=== PATIENT | female | born 1980 | race American Indian/Alaskan Native ===

== ENCOUNTER 2016-12-30 23:47 | Inpatient (IN) | payer SELFPAY ==
[2016-12-31 01:11] LABS: Basophils % (Auto) 0.8 % (0.0-1.8); Eosinophils % (Auto) 0.5 % (0.0-4.3); Hematocrit 30.3 % (30.3-42.9); Hemoglobin 9.6 gm/dl (10.1-14.3); Mean Corpuscular HGB Conc 32 % (30-34); Mean Corpuscular Volume 79 fl (79-97); Platelet Count 353 K/mm3 (140-440); Red Blood Count 3.83 M/mm3 (3.65-5.03); Red Cell Distribution Width 18.3 % (13.2-15.2)
[2016-12-31 01:14] LABS: Mean Corpuscular Hemoglobin 25 pg (28-32)
[2016-12-31 01:22] LABS: Urine Drugs of Abuse Note Disclamer
[2016-12-31 01:38] LABS: Bacteria,Urine 1+ /HPF (Negative); Bilirubin,Urine SM (Negative); Blood,Urine LG (Negative); Ketones,Urine NEG (Negative); Leukocyte Esterase,Urine SM (Negative); Mucus,Urine 1+ /HPF; Nitrite,Urine NEG (Negative); RBC,Urine > 182.0 /HPF (0.0-6.0)
[2016-12-31 01:39] LABS: Potassium 3.2 mmol/L (3.6-5.0); Sodium 140 mmol/L (137-145)
[2016-12-31 01:40] LABS: Anion Gap 18 mmol/L; BUN/Creatinine Ratio 14; Blood Urea Nitrogen 10 mg/dL (7-17); Calcium 9.2 mg/dL (8.4-10.2); Carbon Dioxide 24 mmol/L (22-30); Chloride 101.4 mmol/L (98-107); Glucose 99 mg/dL (65-100)
[2016-12-31] MEDS ORDERED: K-DUR PO ONE (09:31)
--- NOTE | 2016-12-31 10:00 | Emergency Department Report ---
History of Present Illness - General Chief Complaint: Medical Clearance Stated Complaint: HEADACHE, RINGING IN EARS Time Seen by Provider: 12/31/16 09:30 Source: patient Mode of arrival: Ambulatory Limitations: No Limitations - History of Present Illness Initial Comments: 36-year-old female with no significant past medical history presents to the hospital initially for complaint of ringing in both ears and headache 3 weeks. Patient states she has been seen by physicians in the past 3 weeks for the same symptoms but has not received a CAT scan in the past year. Positive associated nausea without vomiting. Patient taken [id number] medicine with mild relief. She thinks the filling dizzy/room spinning sensation 8 times. She is currently homeless for the last 2 week stay she is not eating or sleeping well the last 3 weeks. She initially reported in triage that she was not homicidal or suicidal however, during my interview patient states she took 28 tablets of 500 mg acetaminophen last night. Patient does not know what time she took the medication. She then told the nurse that she took the medication since being in the ED and she has a bottle of Tylenol 100 mg 100 tablets with 17 left in the bottle. Patient history is inconsistent and she claims to not remember when she took the Tylenol (either before or after ED arrival). Patient also confides in the nurse that she is experiencing paranoia - Related Data Allergies Allergy/AdvReac Type Severity Reaction Status Date / Time No Known Allergies Allergy Verified 07/29/15 01:56 ED Review of Systems ROS: Stated complaint: HEADACHE, RINGING IN EARS Other details as noted in HPI Comment: All other systems reviewed and negative Other: Constitutional: No fevers chills Eyes: No eye pain visual changes ENT: As per HPI Neck: Denies pain Respiratory: Denies cough wheezing shortness of breath Cardiovascular: Denies chest pain, palpitations, syncope GI: Denies abdominal pain : Denies dysuria Musculoskeletal: Denies back pain, joint swelling Skin: Denies rash, lesions, erythema Neurologic: As per HPI Psychiatric: As per HPI ED Past Medical Hx - Past Medical History Previous Medical History?: No - Surgical History Past Surgical History?: No - Social History Smoking Status: Never Smoker Substance Use Type: None ED Physical Exam - General Limitations: No Limitations - Other Other exam information: General: No limitations, patient is alert in no acute distress Head exam: Atraumatic, normocephalic Eyes exam: Normal appearance, pupils equal reactive to light, extraocular movements intact ENT: Moist mucous membrane, left ear cerumen impaction, right TM appears to be scarred Neck exam: Normal inspection, full range of motion, no meningismus nontender Respiratory exam: Clear to auscultation bilateral, no wheezes, rales, crackles Cardiovascular: Normal rate and rhythm, normal heart sounds Abdomen: Soft, nondistended, and nontender, with normal bowel sounds, no rebound, or guarding Extremity: Full range of motion normal inspection no deformity Back: Normal Inspection, full range of motion, no tenderness Neurologic: Alert, oriented x3, cranial nerves intact, no motor or sensory deficit Psychiatric: Tearful, depressed Skin: Warm, dry, intact ED Course Vital Signs 12/31/16 12/31/16 12/31/16 00:39 05:46 11:00 Temperature 98.9 F 97.8 F Pulse Rate 84 92 H Respiratory 18 16 18 Rate Blood Pressure 124/75 130/78 O2 Sat by Pulse 100 100 Oximetry - Reevaluation(s) Reevaluation #1: 12/31/16 12:16 Patient received by mouth potassium and acetylcysteine initiated after reconsultation with poison control - Consultations Consultation #1: 12/31/16 09:56 case d/w Shay with poison control, rec asa, tylenol level prior to initiating treatment. 12/31/16 12:00 Poison control reconsultated recommends N-acetylcysteine They recommend repeat blood work 2 hours prior to completion of the 16 hour infusion to determine if repeat 16 hour infusion of N-acetylcysteine is necessary. Parameters to stop N-acetylcysteine infusion after 16 hours include Acetaminophen equals 0 LFTs less than 100 INR less than 1.5. If these are not met patient will require additional 16 hr N acetylcysteine infusuib. ED Medical Decision Making - Lab Data Result diagrams: 12/31/16 00:48 12/31/16 00:48 Lab Results 12/31/16 12/31/16 12/31/16 Range/Units 00:48 00:48 00:48 WBC (4.5-11.0) K/mm3 RBC (3.65-5.03) M/mm3 Hgb (10.1-14.3) gm/dl Hct (30.3-42.9) % MCV (79-97) fl MCH (28-32) pg MCHC (30-34) % RDW (13.2-15.2) % Plt Count (140-440) K/mm3 Lymph % (Auto) (13.4-35.0) % [place] % (Auto) (0.0-7.3) % Eos % (Auto) (0.0-4.3) % Baso % (Auto) (0.0-1.8) % Lymph # (1.2-5.4) K/mm3 [place] # (0.0-0.8) K/mm3 Eos # (0.0-0.4) K/mm3 Baso # (0.0-0.1) K/mm3 Seg Neutrophils % (40.0-70.0) % Seg Neutrophils # (1.8-7.7) K/mm3 Sodium 140 (137-145) mmol/L Potassium 3.2 L (3.6-5.0) mmol/L Chloride 101.4 (98-107) mmol/L Carbon Dioxide 24 (22-30) mmol/L Anion Gap 18 mmol/L BUN 10 (7-17) mg/dL Creatinine 0.7 (0.7-1.2) mg/dL Estimated GFR > 60 ml/min BUN/Creatinine Ratio 14 % Glucose 99 (65-100) mg/dL Calcium 9.2 (8.4-10.2) mg/dL Total Bilirubin (0.1-1.2) mg/dL Direct Bilirubin (0-0.2) mg/dL AST (5-40) units/L ALT (7-56) units/L Alkaline Phosphatase (35-129) units/L Total Creatine Kinase (30-135) units/L Total Protein (6.3-8.2) g/dL Albumin (3.9-5) g/dL Albumin/Globulin Ratio % HCG, Qual Negative (Negative) Urine Color (Yellow) Urine Turbidity (Clear) Urine pH (5.0-7.0) Ur Specific [place] (1.003-1.030) Urine Protein (Negative) mg/dL Urine Glucose (UA) (Negative) mg/dL Urine Ketones (Negative) mg/dL Urine Blood (Negative) Urine Nitrite (Negative) Urine Bilirubin (Negative) Urine Ictotest (Negative) Urine Urobilinogen (<2.0) mg/dL Ur Leukocyte Esterase (Negative) Urine WBC (Auto) (0.0-6.0) /HPF Urine RBC (Auto) (0.0-6.0) /HPF U Epithel Cells (Auto) (0-13.0) /HPF Urine Bacteria (Auto) (Negative) /HPF Urine Mucus /HPF Salicylates (2.8-20.0) mg/dL Urine Opiates Screen Urine Methadone Screen Acetaminophen (10.0-30.0) ug/mL Ur Barbiturates Screen Ur Phencyclidine Scrn Ur Amphetamines Screen U Benzodiazepines Scrn Urine Cocaine Screen U Marijuana (THC) Screen Drugs of Abuse Note Plasma/Serum Alcohol < 0.01 (0-0.07) gm% 12/31/16 12/31/16 12/31/16 Range/Units 00:48 00:48 00:48 WBC 8.0 (4.5-11.0) K/mm3 RBC 3.83 (3.65-5.03) M/mm3 Hgb 9.6 L (10.1-14.3) gm/dl Hct 30.3 (30.3-42.9) % MCV 79 (79-97) fl MCH 25 L (28-32) pg MCHC 32 (30-34) % RDW 18.3 H (13.2-15.2) % Plt Count 353 (140-440) K/mm3 Lymph % (Auto) 22.1 (13.4-35.0) % [place] % (Auto) 9.0 H (0.0-7.3) % Eos % (Auto) 0.5 (0.0-4.3) % Baso % (Auto) 0.8 (0.0-1.8) % Lymph # 1.8 (1.2-5.4) K/mm3 [place] # 0.7 (0.0-0.8) K/mm3 Eos # 0.0 (0.0-0.4) K/mm3 Baso # 0.1 (0.0-0.1) K/mm3 Seg Neutrophils % 67.6 (40.0-70.0) % Seg Neutrophils # 5.4 (1.8-7.7) K/mm3 Sodium (137-145) mmol/L Potassium (3.6-5.0) mmol/L Chloride (98-107) mmol/L Carbon Dioxide (22-30) mmol/L Anion Gap mmol/L BUN (7-17) mg/dL Creatinine (0.7-1.2) mg/dL Estimated GFR ml/min BUN/Creatinine Ratio % Glucose (65-100) mg/dL Calcium (8.4-10.2) mg/dL Total Bilirubin (0.1-1.2) mg/dL Direct Bilirubin (0-0.2) mg/dL AST (5-40) units/L ALT (7-56) units/L Alkaline Phosphatase (35-129) units/L Total Creatine Kinase 79 (30-135) units/L Total Protein (6.3-8.2) g/dL Albumin (3.9-5) g/dL Albumin/Globulin Ratio % HCG, Qual (Negative) Urine Color (Yellow) Urine Turbidity (Clear) Urine pH (5.0-7.0) Ur Specific [place] (1.003-1.030) Urine Protein (Negative) mg/dL Urine Glucose (UA) (Negative) mg/dL Urine Ketones (Negative) mg/dL Urine Blood (Negative) Urine Nitrite (Negative) Urine Bilirubin (Negative) Urine Ictotest (Negative) Urine Urobilinogen (<2.0) mg/dL Ur Leukocyte Esterase (Negative) Urine WBC (Auto) (0.0-6.0) /HPF Urine RBC (Auto) (0.0-6.0) /HPF U Epithel Cells (Auto) (0-13.0) /HPF Urine Bacteria (Auto) (Negative) /HPF Urine Mucus /HPF Salicylates < 0.3 L (2.8-20.0) mg/dL Urine Opiates Screen Urine Methadone Screen Acetaminophen (10.0-30.0) ug/mL Ur Barbiturates Screen Ur Phencyclidine Scrn Ur Amphetamines Screen U Benzodiazepines Scrn Urine Cocaine Screen U Marijuana (THC) Screen Drugs of Abuse Note Plasma/Serum Alcohol (0-0.07) gm% 12/31/16 12/31/16 12/31/16 Range/Units 00:48 01:01 01:01 WBC (4.5-11.0) K/mm3 RBC (3.65-5.03) M/mm3 Hgb (10.1-14.3) gm/dl Hct (30.3-42.9) % MCV (79-97) fl MCH (28-32) pg MCHC (30-34) % RDW (13.2-15.2) % Plt Count (140-440) K/mm3 Lymph % (Auto) (13.4-35.0) % [place] % (Auto) (0.0-7.3) % Eos % (Auto) (0.0-4.3) % Baso % (Auto) (0.0-1.8) % Lymph # (1.2-5.4) K/mm3 [place] # (0.0-0.8) K/mm3 Eos # (0.0-0.4) K/mm3 Baso # (0.0-0.1) K/mm3 Seg Neutrophils % (40.0-70.0) % Seg Neutrophils # (1.8-7.7) K/mm3 Sodium (137-145) mmol/L Potassium (3.6-5.0) mmol/L Chloride (98-107) mmol/L Carbon Dioxide (22-30) mmol/L Anion Gap mmol/L BUN (7-17) mg/dL Creatinine (0.7-1.2) mg/dL Estimated GFR ml/min BUN/Creatinine Ratio % Glucose (65-100) mg/dL Calcium (8.4-10.2) mg/dL Total Bilirubin (0.1-1.2) mg/dL Direct Bilirubin (0-0.2) mg/dL AST (5-40) units/L ALT (7-56) units/L Alkaline Phosphatase (35-129) units/L Total Creatine Kinase (30-135) units/L Total Protein (6.3-8.2) g/dL Albumin (3.9-5) g/dL Albumin/Globulin Ratio % HCG, Qual (Negative) Urine Color [place] (Yellow) Urine Turbidity Slightly-cloudy (Clear) Urine pH 5.0 (5.0-7.0) Ur Specific [place] 1.035 H (1.003-1.030) Urine Protein 100 mg/dl (Negative) mg/dL Urine Glucose (UA) Neg (Negative) mg/dL Urine Ketones Neg (Negative) mg/dL Urine Blood Lg (Negative) Urine Nitrite Neg (Negative) Urine Bilirubin Sm (Negative) Urine Ictotest Negative (Negative) Urine Urobilinogen 2.0 (<2.0) mg/dL Ur Leukocyte Esterase Sm (Negative) Urine WBC (Auto) 44.0 H (0.0-6.0) /HPF Urine RBC (Auto) > 182.0 (0.0-6.0) /HPF U Epithel Cells (Auto) 5.0 (0-13.0) /HPF Urine Bacteria (Auto) 1+ (Negative) /HPF Urine Mucus 1+ /HPF Salicylates (2.8-20.0) mg/dL Urine Opiates Screen Presumptive negative Urine Methadone Screen Presumptive negative Acetaminophen < 15.0 (10.0-30.0) ug/mL Ur Barbiturates Screen Presumptive negative Ur Phencyclidine Scrn Presumptive negative Ur Amphetamines Screen Presumptive positive U Benzodiazepines Scrn Presumptive negative Urine Cocaine Screen Presumptive negative U Marijuana (THC) Screen Presumptive negative Drugs of Abuse Note Disclamer Plasma/Serum Alcohol (0-0.07) gm% 12/31/16 12/31/16 12/31/16 Range/Units 10:06 11:04 11:04 WBC (4.5-11.0) K/mm3 RBC (3.65-5.03) M/mm3 Hgb (10.1-14.3) gm/dl Hct (30.3-42.9) % MCV (79-97) fl MCH (28-32) pg MCHC (30-34) % RDW (13.2-15.2) % Plt Count (140-440) K/mm3 Lymph % (Auto) (13.4-35.0) % [place] % (Auto) (0.0-7.3) % Eos % (Auto) (0.0-4.3) % Baso % (Auto) (0.0-1.8) % Lymph # (1.2-5.4) K/mm3 [place] # (0.0-0.8) K/mm3 Eos # (0.0-0.4) K/mm3 Baso # (0.0-0.1) K/mm3 Seg Neutrophils % (40.0-70.0) % Seg Neutrophils # (1.8-7.7) K/mm3 Sodium (137-145) mmol/L Potassium (3.6-5.0) mmol/L Chloride (98-107) mmol/L Carbon Dioxide (22-30) mmol/L Anion Gap mmol/L BUN (7-17) mg/dL Creatinine (0.7-1.2) mg/dL Estimated GFR ml/min BUN/Creatinine Ratio % Glucose (65-100) mg/dL Calcium (8.4-10.2) mg/dL Total Bilirubin 0.20 (0.1-1.2) mg/dL Direct Bilirubin < 0.2 (0-0.2) mg/dL AST 15 (5-40) units/L ALT 7 (7-56) units/L Alkaline Phosphatase 54 (35-129) units/L Total Creatine Kinase (30-135) units/L Total Protein 8.5 H (6.3-8.2) g/dL Albumin 4.6 (3.9-5) g/dL Albumin/Globulin Ratio 1.2 % HCG, Qual (Negative) Urine Color (Yellow) Urine Turbidity (Clear) Urine pH (5.0-7.0) Ur Specific [place] (1.003-1.030) Urine Protein (Negative) mg/dL Urine Glucose (UA) (Negative) mg/dL Urine Ketones (Negative) mg/dL Urine Blood (Negative) Urine Nitrite (Negative) Urine Bilirubin (Negative) Urine Ictotest (Negative) Urine Urobilinogen (<2.0) mg/dL Ur Leukocyte Esterase (Negative) Urine WBC (Auto) (0.0-6.0) /HPF Urine RBC (Auto) (0.0-6.0) /HPF U Epithel Cells (Auto) (0-13.0) /HPF Urine Bacteria (Auto) (Negative) /HPF Urine Mucus /HPF Salicylates < 0.3 L (2.8-20.0) mg/dL Urine Opiates Screen Urine Methadone Screen Acetaminophen 111.7 H (10.0-30.0) ug/mL Ur Barbiturates Screen Ur Phencyclidine Scrn Ur Amphetamines Screen U Benzodiazepines Scrn Urine Cocaine Screen U Marijuana (THC) Screen Drugs of Abuse Note Plasma/Serum Alcohol (0-0.07) gm% - Radiology Data Radiology results: report reviewed (CT head: No acute findings) - Medical Decision Making I was able to add acetaminophen and salicylate levels to the original blood draw at approximately midnight. This shows been negative acetaminophen level. Acetaminophen level drawn after I interviewed the patient shows an elevated level. Patient apparently took the Tylenol within "a couple hours" of my evaluation and exact time is unknown. After rediscussion with poison control we determined that N acetylcysteine treatment is required Patient's UA shows increased blood and white cells however, patient denies urinary symptoms and is currently on her menstrual cycle. CT head does not show any acute abnormality Coags pending for baseline level. LFTs are initially normal - Differential Diagnosis overdose, psychosis, depression, homelessness, ICH, Mnire, tumor Critical Care Time: No Critical care attestation.: If time is entered above; I have spent that time in minutes in the direct care of this critically ill patient, excluding procedure time. ED Disposition Clinical Impression: Acetaminophen overdose, Homeless, Paranoid delusion, Hypokalemia, Chronic head pain, Bilateral tinnitus Disposition: OP ADMIT IP TO THIS HOSP Is pt being admited?: Yes Condition: Stable Time of Disposition: 12:19 (Dr loyola/hosp)
--- NOTE | 2016-12-31 10:22 | Cat Scan Report ---
CT HEAD WITHOUT CONTRAST: HISTORY: Headache, tinnitus. Serial contiguous axial images were obtained through the cranium. Intravenous contrast material was not administered. The ventricles are normal in size and appearance. There is no mass effect or midline shift. No areas of abnormally increased or decreased attenuation are seen. No mass lesion is seen. The mastoid air cells and visualized portions of the sinuses are normal. IMPRESSION: Cranial CT scan within normal limits.
[2016-12-31 10:39] LABS: Alanine Aminotransferase 7 units/L (7-56); Albumin 4.6 g/dL (3.9-5); Albumin/Globulin Ratio 1.2 %; Alkaline Phosphatase 54 units/L (35-129); Total Protein 8.5 g/dL (6.3-8.2)
[2016-12-31 10:41] LABS: Bilirubin,Direct < 0.2 mg/dL (0-0.2)
[2016-12-31] MEDS ORDERED: ZOFRAN ODT ONE (10:59)
[2016-12-31] MEDS ORDERED: ZOFRAN ODT PO ONE (11:02)
[2016-12-31] MEDS ORDERED: ACETADOTE IV ONE ×6 (11:48→17:30)
[2016-12-31] MEDS ORDERED: D5W IV ONE ×5 (11:55→17:30)
[2016-12-31 14:49] LABS: INR 1.22 (0.87-1.13)
[2016-12-31 14:50] LABS: Partial Thromboplastin Time 33.5 Sec. (24.2-36.6)
[2016-12-31] MEDS ORDERED: MORPHINE IV PRN ×2 (14:54→16:30)
--- NOTE | 2016-12-31 14:54 | History and Physical Report ---
History of Present Illness Date of examination: 12/31/16 Date of admission: 12/31/16 12:23 Chief complaint: CC Tylenol Overdose History of present illness: History of Present Illness: [id number]/oAAFapparently tookabout 30 tylenol tablets while waiting in ER to be seen.She came to ER b/c of Dizziness.Says she took it accidentally for pain / symptom reief.Denies Suicidal or Homicidal thoughts.No sob.No Nausea/vomiting. Past Medical History Previous Medical History?: No Surgical History Past Surgical History?: No - Social History Smoking Status: Never Smoker Substance Use Type: None Fam his Non contributory Review of Systems Stated complaint: HEADACHE, RINGING IN EARS Other details as noted in HPI Comment: All other systems reviewed and negative Other: Constitutional: No fevers chills Eyes: No eye pain visual changes ENT: As per HPI Neck: Denies pain Respiratory: Denies cough wheezing shortness of breath Cardiovascular: Denies chest pain, palpitations, syncope GI: Denies abdominal pain : Denies dysuria Musculoskeletal: Denies back pain, joint swelling Skin: Denies rash, lesions, erythema Neurologic: As per HPI Psychiatric: As per HPI Medications and Allergies Allergies Allergy/AdvReac Type Severity Reaction Status Date / Time No Known Allergies Allergy Verified 07/29/15 01:56 Active Meds: Active Medications Acetylcysteine 6,670 mg/ (Dextrose) 1,033.35 mls @ 64.584 mls/hr IV ONCE.ED ONE Stop: 01/01/17 09:29 Acetylcysteine 3,335 mg/ (Dextrose) 516.675 mls @ 129.169 mls/hr IV ONCE.ED ONE Stop: 12/31/16 17:29 Exam - Constitutional Vitals: Temp Pulse Resp BP Pulse Ox 97.5 F L 73 18 124/74 100 12/31/16 12:19 12/31/16 14:22 12/31/16 14:22 12/31/16 14:00 12/31/16 14:22 General appearance: Present: no acute distress, well-nourished - EENT Eyes: Present: PERRL ENT: hearing intact, clear oral mucosa - Neck Neck: Present: supple, normal ROM - Respiratory Respiratory effort: normal Respiratory: bilateral: CTA - Cardiovascular Heart rate: 80 Rhythm: regular Heart Sounds: Present: S1 & S2. Absent: rub, click - Extremities Extremities: pulses symmetrical, No edema Peripheral Pulses: within normal limits - Abdominal General gastrointestinal: Present: soft, non-tender, non-distended, normal bowel sounds Female genitourinary: Present: normal - Rectal Rectal Exam: deferred - Integumentary Integumentary: Present: clear, warm, dry - Musculoskeletal Musculoskeletal: gait normal, strength equal bilaterally - Psychiatric Psychiatric: appropriate mood/affect, intact judgment & insight - Neurologic Neurologic: CNII-XII intact, moves all extremities - Allied Health Allied health notes reviewed: nursing, case management Results - Labs CBC & Chem 7: 12/31/16 00:48 12/31/16 00:48 Labs: Laboratory Last Values WBC 8.0 K/mm3 (4.5-11.0) 12/31/16 00:48 RBC 3.83 M/mm3 (3.65-5.03) 12/31/16 00:48 Hgb 9.6 gm/dl (10.1-14.3) L 12/31/16 00:48 Hct 30.3 % (30.3-42.9) 12/31/16 00:48 MCV 79 fl (79-97) 12/31/16 00:48 MCH 25 pg (28-32) L 12/31/16 00:48 MCHC 32 % (30-34) 12/31/16 00:48 RDW 18.3 % (13.2-15.2) H 12/31/16 00:48 Plt Count 353 K/mm3 (140-440) 12/31/16 00:48 Lymph % (Auto) 22.1 % (13.4-35.0) 12/31/16 00:48 [place] % (Auto) 9.0 % (0.0-7.3) H 12/31/16 00:48 Eos % (Auto) 0.5 % (0.0-4.3) 12/31/16 00:48 Baso % (Auto) 0.8 % (0.0-1.8) 12/31/16 00:48 Lymph # 1.8 K/mm3 (1.2-5.4) 12/31/16 00:48 [place] # 0.7 K/mm3 (0.0-0.8) 12/31/16 00:48 Eos # 0.0 K/mm3 (0.0-0.4) 12/31/16 00:48 Baso # 0.1 K/mm3 (0.0-0.1) 12/31/16 00:48 Seg Neutrophils % 67.6 % (40.0-70.0) 12/31/16 00:48 Seg Neutrophils # 5.4 K/mm3 (1.8-7.7) 12/31/16 00:48 PT 16.0 Sec. (12.2-14.9) H 12/31/16 Unknown INR 1.22 (0.87-1.13) H 12/31/16 Unknown APTT 33.5 Sec. (24.2-36.6) 12/31/16 Unknown Sodium 140 mmol/L (137-145) 12/31/16 00:48 Potassium 3.2 mmol/L (3.6-5.0) L 12/31/16 00:48 Chloride 101.4 mmol/L (98-107) 12/31/16 00:48 Carbon Dioxide 24 mmol/L (22-30) 12/31/16 00:48 Anion Gap 18 mmol/L 12/31/16 00:48 BUN 10 mg/dL (7-17) 12/31/16 00:48 Creatinine 0.7 mg/dL (0.7-1.2) 12/31/16 00:48 Estimated GFR > 60 ml/min 12/31/16 00:48 BUN/Creatinine Ratio 14 % 12/31/16 00:48 Glucose 99 mg/dL (65-100) 12/31/16 00:48 Calcium 9.2 mg/dL (8.4-10.2) 12/31/16 00:48 Total Bilirubin 0.20 mg/dL (0.1-1.2) 12/31/16 10:06 Direct Bilirubin < 0.2 mg/dL (0-0.2) 12/31/16 10:06 AST 15 units/L (5-40) 12/31/16 10:06 ALT 7 units/L (7-56) 12/31/16 10:06 Alkaline Phosphatase 54 units/L (35-129) 12/31/16 10:06 Total Creatine Kinase 79 units/L (30-135) 12/31/16 00:48 Total Protein 8.5 g/dL (6.3-8.2) H 12/31/16 10:06 Albumin 4.6 g/dL (3.9-5) 12/31/16 10:06 Albumin/Globulin Ratio 1.2 % 12/31/16 10:06 HCG, Qual Negative (Negative) 12/31/16 00:48 Urine Color [place] (Yellow) 12/31/16 01:01 Urine Turbidity Slightly-cloudy (Clear) 12/31/16 01:01 Urine pH 5.0 (5.0-7.0) 12/31/16 01:01 Ur Specific [place] 1.035 (1.003-1.030) H 12/31/16 01:01 Urine Protein 100 mg/dl mg/dL (Negative) 12/31/16 01:01 Urine Glucose (UA) Neg mg/dL (Negative) 12/31/16 01:01 Urine Ketones Neg mg/dL (Negative) 12/31/16 01:01 Urine Blood Lg (Negative) 12/31/16 01:01 Urine Nitrite Neg (Negative) 12/31/16 01:01 Urine Bilirubin Sm (Negative) 12/31/16 01:01 Urine Ictotest Negative (Negative) 12/31/16 01:01 Urine Urobilinogen 2.0 mg/dL (<2.0) 12/31/16 01:01 Ur Leukocyte Esterase Sm (Negative) 12/31/16 01:01 Urine WBC (Auto) 44.0 /HPF (0.0-6.0) H 12/31/16 01:01 Urine RBC (Auto) > 182.0 /HPF (0.0-6.0) 12/31/16 01:01 U Epithel Cells (Auto) 5.0 /HPF (0-13.0) 12/31/16 01:01 Urine Bacteria (Auto) 1+ /HPF (Negative) 12/31/16 01:01 Urine Mucus 1+ /HPF 12/31/16 01:01 Salicylates < 0.3 mg/dL (2.8-20.0) L 12/31/16 11:04 Urine Opiates Screen Presumptive negative 12/31/16 01:01 Urine Methadone Screen Presumptive negative 12/31/16 01:01 Acetaminophen 111.7 ug/mL (10.0-30.0) H 12/31/16 11:04 Ur Barbiturates Screen Presumptive negative 12/31/16 01:01 Ur Phencyclidine Scrn Presumptive negative 12/31/16 01:01 Ur Amphetamines Screen Presumptive positive 12/31/16 01:01 U Benzodiazepines Scrn Presumptive negative 12/31/16 01:01 Urine Cocaine Screen Presumptive negative 12/31/16 01:01 U Marijuana (THC) Screen Presumptive negative 12/31/16 01:01 Drugs of Abuse Note Disclamer 12/31/16 01:01 Plasma/Serum Alcohol < 0.01 gm% (0-0.07) 12/31/16 00:48 Cardiac Enzymes 12/31/16 Range/Units 00:48 Total Creatine Kinase 79 (30-135) units/L Liver Function 12/31/16 Range/Units 10:06 Total Bilirubin 0.20 (0.1-1.2) mg/dL Direct Bilirubin < 0.2 (0-0.2) mg/dL AST 15 (5-40) units/L ALT 7 (7-56) units/L Alkaline Phosphatase 54 (35-129) units/L Albumin 4.6 (3.9-5) g/dL - Imaging and Cardiology CT Scan - head: report reviewed (NAF) Assessment and Plan Advance Directives: Yes (Full code) VTE prophylaxis?: Chemical Plan of care discussed with patient/family: Yes - Patient Problems (1) Acetaminophen overdose Current Visit: Yes Status: Acute Qualifiers: Encounter type: initial encounter Injury intent: I Plan to address problem: IV Mucomist initiated per protocol .Also IV fluids for now.Tylenol level 111.High but not vary high MH consult. (2) Homeless Current Visit: Yes Status: Chronic Plan to address problem: Needs SW intervention (3) Hypokalemia Current Visit: Yes Status: Acute Plan to address problem: Supplemented (4) UTI (urinary tract infection) Current Visit: Yes Status: Acute Qualifiers: Urinary tract infection type: acute cystitis Hematuria presence: H Indwelling urinary catheter type: I Encounter type: E Plan to address problem: Ceftriaxone initiated (5) Drug allergy Current Visit: Yes Status: Acute Plan to address problem: patient says she had reaction to mucomist.Mucomist stopped and was given Solumedrol and Benadryl (6) Anemia Current Visit: Yes Status: Chronic Qualifiers: Anemia type: iron deficiency Iron deficiency anemia type: I Vitamin B12 deficiency anemia type: V Folate deficiency anemia type: F Bone marrow failure anemia type: B Hemolytic anemia type: H Other causes of anemia: O Chronic kidney disease stage: C Plan to address problem: CHeck Iron/B12/Folic acid levels (7) DVT prophylaxis Current Visit: Yes Status: Acute Plan to address problem: On Lovenox
[2016-12-31] MEDS ORDERED: MUCOMYST ORAL PO SCH ×2 (15:00→22:00)
[2016-12-31] MEDS ORDERED: D5NS 1,000 ML IV SCH (15:00)
[2016-12-31] MEDS ORDERED: TYLENOL PO PRN (15:30)
[2016-12-31] MEDS ORDERED: ZOFRAN IV PRN (15:30)
[2016-12-31] MEDS ORDERED: DULCOLAX PR PRN (16:00)
[2016-12-31] MEDS ORDERED: BENADRYL IV PRN (16:20)
[2016-12-31] MEDS: PEPCID IV SCH (22:00)
[2017-01-01] MEDS ORDERED: K-DUR PO ONE (08:00)
[2017-01-01] MEDS: PEPCID IV SCH (09:56)
[2017-01-01] MEDS ORDERED: ROCEPHIN/NS 1 GM/50 ML 1 GM/50 ML BAG IV SCH (10:00)
[2017-01-01] MEDS ORDERED: MOTRIN PO PRN (10:13)
--- NOTE | 2017-01-01 11:15 | Progress Note ---
Assessment and Plan Assessment and plan: Acetaminophen overdose. She apparently took Tylenol previous. She was admitted for Tylenol overdose. She was initially started on Mucomyst, had an allergic reaction, this was discontinued she is now started on solumedrol and Benadryl. Hypokalemia. SR 3.2 on admission. She was given replacement potassium. Repeat potassium ordered but patient has refused blood draw. Urinary tract infection. Start [employer] homeless. rn case manager to assist. Medical non-compliance. patient has been very noncompliant. She removed IV and refused IV medications. She has also refused blood draw. I discussed with her about importance of checking labs - Acetaminophen level, INR ,CMP but she still refused. DVT prophylaxis History Interval history: Patient admitted for acetaminophen overdose, Patient has been refusing some medications, labs, She took iv out Hospitalist Physical - Physical exam Narrative exam: Gen Appearance: Not in acute distress, HEENT: normocephalic, atraumatic Neck: supple, no JVD Lungs: Clear to auscultation, no rales, no wheezing, Heart: S1 and S2 regular, no murmurs,no rubs or gallop, Abdomen: Soft , non tender, non distended, normal bowel sounds Extremity: No edema, no clubbing or cyanosis, Neuro : Awake,alert, oriented x 3, normal speech, moves all extremities - Constitutional Vitals: Temp Pulse Resp BP Pulse Ox 97.9 F 67 18 105/63 99 01/01/17 07:44 01/01/17 07:44 01/01/17 07:44 01/01/17 07:44 01/01/17 04:00 General appearance: Present: no acute distress, well-nourished Results - Labs CBC & Chem 7: 12/31/16 00:48 12/31/16 00:48 Labs: Laboratory Last Values WBC 8.0 K/mm3 (4.5-11.0) 12/31/16 00:48 RBC 3.83 M/mm3 (3.65-5.03) 12/31/16 00:48 Hgb 9.6 gm/dl (10.1-14.3) L 12/31/16 00:48 Hct 30.3 % (30.3-42.9) 12/31/16 00:48 MCV 79 fl (79-97) 12/31/16 00:48 MCH 25 pg (28-32) L 12/31/16 00:48 MCHC 32 % (30-34) 12/31/16 00:48 RDW 18.3 % (13.2-15.2) H 12/31/16 00:48 Plt Count 353 K/mm3 (140-440) 12/31/16 00:48 Lymph % (Auto) 22.1 % (13.4-35.0) 12/31/16 00:48 [place] % (Auto) 9.0 % (0.0-7.3) H 12/31/16 00:48 Eos % (Auto) 0.5 % (0.0-4.3) 12/31/16 00:48 Baso % (Auto) 0.8 % (0.0-1.8) 12/31/16 00:48 Lymph # 1.8 K/mm3 (1.2-5.4) 12/31/16 00:48 [place] # 0.7 K/mm3 (0.0-0.8) 12/31/16 00:48 Eos # 0.0 K/mm3 (0.0-0.4) 12/31/16 00:48 Baso # 0.1 K/mm3 (0.0-0.1) 12/31/16 00:48 Seg Neutrophils % 67.6 % (40.0-70.0) 12/31/16 00:48 Seg Neutrophils # 5.4 K/mm3 (1.8-7.7) 12/31/16 00:48 PT 16.0 Sec. (12.2-14.9) H 12/31/16 Unknown INR 1.22 (0.87-1.13) H 12/31/16 Unknown APTT 33.5 Sec. (24.2-36.6) 12/31/16 Unknown Sodium 140 mmol/L (137-145) 12/31/16 00:48 Potassium 3.2 mmol/L (3.6-5.0) L 12/31/16 00:48 Chloride 101.4 mmol/L (98-107) 12/31/16 00:48 Carbon Dioxide 24 mmol/L (22-30) 12/31/16 00:48 Anion Gap 18 mmol/L 12/31/16 00:48 BUN 10 mg/dL (7-17) 12/31/16 00:48 Creatinine 0.7 mg/dL (0.7-1.2) 12/31/16 00:48 Estimated GFR > 60 ml/min 12/31/16 00:48 BUN/Creatinine Ratio 14 % 12/31/16 00:48 Glucose 99 mg/dL (65-100) 12/31/16 00:48 Calcium 9.2 mg/dL (8.4-10.2) 12/31/16 00:48 Total Bilirubin 0.20 mg/dL (0.1-1.2) 12/31/16 10:06 Direct Bilirubin < 0.2 mg/dL (0-0.2) 12/31/16 10:06 AST 15 units/L (5-40) 12/31/16 10:06 ALT 7 units/L (7-56) 12/31/16 10:06 Alkaline Phosphatase 54 units/L (35-129) 12/31/16 10:06 Total Creatine Kinase 79 units/L (30-135) 12/31/16 00:48 Total Protein 8.5 g/dL (6.3-8.2) H 12/31/16 10:06 Albumin 4.6 g/dL (3.9-5) 12/31/16 10:06 Albumin/Globulin Ratio 1.2 % 12/31/16 10:06 HCG, Qual Negative (Negative) 12/31/16 00:48 Urine Color Nimo (Yellow) 12/31/16 01:01 Urine Turbidity Slightly-cloudy (Clear) 12/31/16 01:01 Urine pH 5.0 (5.0-7.0) 12/31/16 01:01 Ur Specific [place] 1.035 (1.003-1.030) H 12/31/16 01:01 Urine Protein 100 mg/dl mg/dL (Negative) 12/31/16 01:01 Urine Glucose (UA) Neg mg/dL (Negative) 12/31/16 01:01 Urine Ketones Neg mg/dL (Negative) 12/31/16 01:01 Urine Blood Lg (Negative) 12/31/16 01:01 Urine Nitrite Neg (Negative) 12/31/16 01:01 Urine Bilirubin Sm (Negative) 12/31/16 01:01 Urine Ictotest Negative (Negative) 12/31/16 01:01 Urine Urobilinogen 2.0 mg/dL (<2.0) 12/31/16 01:01 Ur Leukocyte Esterase Sm (Negative) 12/31/16 01:01 Urine WBC (Auto) 44.0 /HPF (0.0-6.0) H 12/31/16 01:01 Urine RBC (Auto) > 182.0 /HPF (0.0-6.0) 12/31/16 01:01 U Epithel Cells (Auto) 5.0 /HPF (0-13.0) 12/31/16 01:01 Urine Bacteria (Auto) 1+ /HPF (Negative) 12/31/16 01:01 Urine Mucus 1+ /HPF 12/31/16 01:01 Salicylates < 0.3 mg/dL (2.8-20.0) L 12/31/16 11:04 Urine Opiates Screen Presumptive negative 12/31/16 01:01 Urine Methadone Screen Presumptive negative 12/31/16 01:01 Acetaminophen < 15.0 ug/mL (10.0-30.0) 12/31/16 20:10 Ur Barbiturates Screen Presumptive negative 12/31/16 01:01 Ur Phencyclidine Scrn Presumptive negative 12/31/16 01:01 Ur Amphetamines Screen Presumptive positive 12/31/16 01:01 U Benzodiazepines Scrn Presumptive negative 12/31/16 01:01 Urine Cocaine Screen Presumptive negative 12/31/16 01:01 U Marijuana (THC) Screen Presumptive negative 12/31/16 01:01 Drugs of Abuse Note Disclamer 12/31/16 01:01 Plasma/Serum Alcohol < 0.01 gm% (0-0.07) 12/31/16 00:48
[2017-01-01] MEDS: ULTRAM PO PRN (20:41)
[2017-01-01] MEDS: MOTRIN PO PRN (23:15)
[2017-01-01] MEDS: AMBIEN PO PRN (23:15)
--- NOTE | 2017-01-02 10:03 | Progress Note ---
Assessment and Plan Assessment and plan: Acetaminophen overdose. She apparently took Tylenol 30 pills. She was admitted for Tylenol overdose. She was initially started on Mucomyst, had an allergic reaction, this was discontinued she is now started on solumedrol and Benadryl. She is on suicide watch with 1:1 sitter, 1013 status Hypokalemia. Was 3.2 on admission. She was given replacement potassium. Repeat potassium ordered but patient has refused blood draw. Urinary tract infection. Started on Levaquin orally Homeless. global category manager consulted. Medical non-compliance. patient has been very noncompliant. She removed IV and refused IV medications. She has also refused blood draw. I discussed with her about importance of checking labs - Acetaminophen level, INR ,CMP but she still refused. DVT prophylaxis with Lovenox She is medically stable to inpatient Psych History Interval history: Patient admitted for acetaminophen overdose, Patient has been refusing some medications, blood draw for labs, She took iv out Hospitalist Physical - Physical exam Narrative exam: Gen Appearance: Not in acute distress, HEENT: normocephalic, atraumatic Neck: supple, no JVD Lungs: Clear to auscultation, no rales, no wheezing, Heart: S1 and S2 regular, no murmurs,no rubs or gallop, Abdomen: Soft , non tender, non distended, normal bowel sounds Extremity: No edema, no clubbing or cyanosis, Neuro : Awake,alert, oriented x 3, normal speech, moves all extremities - Constitutional Vitals: Temp Pulse Resp BP Pulse Ox 98.2 F 80 18 108/73 100 01/02/17 08:55 01/02/17 08:55 01/02/17 08:55 01/02/17 08:55 01/02/17 08:55 General appearance: Present: no acute distress, well-nourished Results - Labs CBC & Chem 7: 12/31/16 00:48 12/31/16 00:48 Labs: Laboratory Last Values WBC 8.0 K/mm3 (4.5-11.0) 12/31/16 00:48 RBC 3.83 M/mm3 (3.65-5.03) 12/31/16 00:48 Hgb 9.6 gm/dl (10.1-14.3) L 12/31/16 00:48 Hct 30.3 % (30.3-42.9) 12/31/16 00:48 MCV 79 fl (79-97) 12/31/16 00:48 MCH 25 pg (28-32) L 12/31/16 00:48 MCHC 32 % (30-34) 10 00:48 RDW 18.3 % (13.2-15.2) H 12/31/16 00:48 Plt Count 353 K/mm3 (140-440) 12/31/16 00:48 Lymph % (Auto) 22.1 % (13.4-35.0) 12/31/16 00:48 [place] % (Auto) 9.0 % (0.0-7.3) H 12/31/16 00:48 Eos % (Auto) 0.5 % (0.0-4.3) 12/31/16 00:48 Baso % (Auto) 0.8 % (0.0-1.8) 12/31/16 00:48 Lymph # 1.8 K/mm3 (1.2-5.4) 12/31/16 00:48 [place] # 0.7 K/mm3 (0.0-0.8) 12/31/16 00:48 Eos # 0.0 K/mm3 (0.0-0.4) 12/31/16 00:48 Baso # 0.1 K/mm3 (0.0-0.1) 12/31/16 00:48 Seg Neutrophils % 67.6 % (40.0-70.0) 12/31/16 00:48 Seg Neutrophils # 5.4 K/mm3 (1.8-7.7) 12/31/16 00:48 PT 16.0 Sec. (12.2-14.9) H 12/31/16 Unknown INR 1.22 (0.87-1.13) H 12/31/16 Unknown APTT 33.5 Sec. (24.2-36.6) 12/31/16 Unknown Sodium 140 mmol/L (137-145) 12/31/16 00:48 Potassium 3.2 mmol/L (3.6-5.0) L 12/31/16 00:48 Chloride 101.4 mmol/L (98-107) 12/31/16 00:48 Carbon Dioxide 24 mmol/L (22-30) 12/31/16 00:48 Anion Gap 18 mmol/L 12/31/16 00:48 BUN 10 mg/dL (7-17) 12/31/16 00:48 Creatinine 0.7 mg/dL (0.7-1.2) 12/31/16 00:48 Estimated GFR > 60 ml/min 12/31/16 00:48 BUN/Creatinine Ratio 14 % 12/31/16 00:48 Glucose 99 mg/dL (65-100) 12/31/16 00:48 Calcium 9.2 mg/dL (8.4-10.2) 12/31/16 00:48 Total Bilirubin 0.20 mg/dL (0.1-1.2) 12/31/16 10:06 Direct Bilirubin < 0.2 mg/dL (0-0.2) 12/31/16 10:06 AST 15 units/L (5-40) 12/31/16 10:06 ALT 7 units/L (7-56) 12/31/16 10:06 Alkaline Phosphatase 54 units/L (35-129) 12/31/16 10:06 Total Creatine Kinase 79 units/L (30-135) 12/31/16 00:48 Total Protein 8.5 g/dL (6.3-8.2) H 12/31/16 10:06 Albumin 4.6 g/dL (3.9-5) 12/31/16 10:06 Albumin/Globulin Ratio 1.2 % 12/31/16 10:06 HCG, Qual Negative (Negative) 12/31/16 00:48 Urine Color Nimo (Yellow) 12/31/16 01:01 Urine Turbidity Slightly-cloudy (Clear) 12/31/16 01:01 Urine pH 5.0 (5.0-7.0) 12/31/16 01:01 Ur Specific [place] 1.035 (1.003-1.030) H 12/31/16 01:01 Urine Protein 100 mg/dl mg/dL (Negative) 12/31/16 01:01 Urine Glucose (UA) Neg mg/dL (Negative) 12/31/16 01:01 Urine Ketones Neg mg/dL (Negative) 12/31/16 01:01 Urine Blood Lg (Negative) 12/31/16 01:01 Urine Nitrite Neg (Negative) 12/31/16 01:01 Urine Bilirubin Sm (Negative) 12/31/16 01:01 Urine Ictotest Negative (Negative) 12/31/16 01:01 Urine Urobilinogen 2.0 mg/dL (<2.0) 12/31/16 01:01 Ur Leukocyte Esterase Sm (Negative) 12/31/16 01:01 Urine WBC (Auto) 44.0 /HPF (0.0-6.0) H 12/31/16 01:01 Urine RBC (Auto) > 182.0 /HPF (0.0-6.0) 12/31/16 01:01 U Epithel Cells (Auto) 5.0 /HPF (0-13.0) 12/31/16 01:01 Urine Bacteria (Auto) 1+ /HPF (Negative) 12/31/16 01:01 Urine Mucus 1+ /HPF 12/31/16 01:01 Salicylates < 0.3 mg/dL (2.8-20.0) L 12/31/16 11:04 Urine Opiates Screen Presumptive negative 12/31/16 01:01 Urine Methadone Screen Presumptive negative 12/31/16 01:01 Acetaminophen < 15.0 ug/mL (10.0-30.0) 12/31/16 20:10 Ur Barbiturates Screen Presumptive negative 12/31/16 01:01 Ur Phencyclidine Scrn Presumptive negative 12/31/16 01:01 Ur Amphetamines Screen Presumptive positive 12/31/16 01:01 U Benzodiazepines Scrn Presumptive negative 12/31/16 01:01 Urine Cocaine Screen Presumptive negative 12/31/16 01:01 U Marijuana (THC) Screen Presumptive negative 12/31/16 01:01 Drugs of Abuse Note Disclamer 12/31/16 01:01 Plasma/Serum Alcohol < 0.01 gm% (0-0.07) 12/31/16 00:48
--- NOTE | 2017-01-02 10:05 | Event Note ---
Date: 01/02/17 Patient is medically stable for discharge to Psych.
--- NOTE | 2017-01-02 10:10 | Discharge Summary ---
Providers - Providers Date of Admission: 12/31/16 12:23 Date of discharge: 01/02/17 Attending physician: ABDIFATAH VIVEROS 12/31/16 17:22 Consult Risk Management [Consult Patient Care Regional Medical Director] [CONS] Urgent Reason For Exam: pt on 1013, refusing ordered medical treatments 01/01/17 06:53 Consult to Mental Health [CONS] Routine Reason For Exam: Suicidal/Drug OD Place consult to:: dr. norton Notified:: Phone number called:: [phone] Was contact made?: Yes If yes, spoke with:: angelo Time called:: 08:49 01/01/17 06:54 Consult to Case Management [CONS] Routine Services Needed at Discharge: Home Health Services Other Notified:: cw Comment:: Homeless Primary care physician: NON DESTRUCTIVE EVALUATION TECHNICIAN Hospitalization Condition: Fair Disposition: DC/TX-65 PSY HOSP/PSY UNIT Core Measure Documentation - Palliative Care Palliative Care/ Comfort Measures: Not Applicable Exam - Constitutional Vitals: Temp Pulse Resp BP Pulse Ox 98.2 F 80 18 108/73 100 01/02/17 08:55 01/02/17 08:55 01/02/17 08:55 01/02/17 08:55 01/02/17 08:55 Plan Activity: advance as tolerated Diet: regular Follow up with: PRIMARY CARE, [Primary Care Provider] - 3-5 Days Prescriptions: Famotidine [Pepcid] 20 mg PO BID #60 tablet Ibuprofen [Motrin 400 MG tab] 400 mg PO Q8H PRN #10 tablet PRN Reason: Pain, Mild (1-3)
[2017-01-02] MEDS: PEPCID PO SCH (10:21)
--- NOTE | 2017-01-02 15:01 | Consultation ---
History of Present Illness - Reason for Consult Reason for consult: paranoid and reported OD Medications and Allergies Allergies Allergy/AdvReac Type Severity Reaction Status Date / Time No Known Allergies Allergy Verified 07/29/15 01:56 Home Medications Medication Instructions Recorded Confirmed Last Taken Type Famotidine [Pepcid] 20 mg PO BID #60 tablet 01/02/17 Unknown Rx Ibuprofen [Motrin 400 MG tab] 400 mg PO Q8H PRN #10 tablet 01/02/17 Unknown Rx Levofloxacin [Levaquin TAB] 500 mg PO QDAY #5 tablet 01/02/17 Unknown Rx Active Meds: Active Medications Bisacodyl (Dulcolax) 10 mg IA QDAY PRN PRN Reason: Constipation unrelieved by MOM Diphenhydramine HCl (Benadryl) 25 mg IV Q6H PRN PRN Reason: Itching Famotidine (Pepcid) 20 mg PO QDAY SPENCER Last Admin: 01/02/17 10:21 Dose: 20 mg Dextrose/Sodium Chloride (D5ns) 1,000 mls @ 125 mls/hr IV DIRECT SPENCER Ibuprofen (Motrin) 400 mg PO Q8H PRN PRN Reason: Pain, Mild (1-3) Last Admin: 01/01/17 23:15 Dose: 400 mg Levofloxacin (Levaquin) 500 mg PO Q24H SPENCER Magnesium Hydroxide (Milk Of Magnesia) 30 ml PO Q4H PRN PRN Reason: Constipation Methylprednisolone Sodium Succinate (Solu-Medrol) 80 mg IV Q8H SPENCER Last Admin: 01/02/17 10:22 Dose: Not Given Morphine Sulfate (Morphine) 4 mg IV Q4H PRN PRN Reason: Pain , Severe (7-10) Ondansetron HCl (Zofran) 4 mg IV Q8H PRN PRN Reason: Nausea And Vomiting Tramadol HCl (Ultram) 25 mg PO Q4H PRN PRN Reason: Pain, Moderate (4-6) Last Admin: 01/01/17 20:41 Dose: 25 mg Zolpidem Tartrate (Ambien) 5 mg PO QHS PRN PRN Reason: Insomnia Last Admin: 01/01/17 23:15 Dose: 5 mg Mental Status Exam - Vital signs Last Vital Signs Temp 98.2 F 01/02/17 08:55 Pulse 80 01/02/17 08:55 Resp 20 01/02/17 10:23 BP 108/73 01/02/17 08:55 Pulse Ox 100 01/02/17 08:55 Results Result Diagrams: 12/31/16 00:48 12/31/16 00:48 All other labs normal. Assessment and Plan Assessment and plan: CHIEF COMPLAINT IN PATIENTS WORDS: HISTORY OF PRESENT ILLNESS REQUIRING ADMISSION TO INPATIENT LEVEL OF CARE: (Describe the onset of Illness, Intensity of Symptoms, and Circumstances Leading to Admission) This is a 36 year-old undomiciled female who reports no formal past psychiatric history now presenting secondary to a reported overdose on acetaminophen while waiting in the ER to be addressed for a headache. Patient reportedly took 28 500 mg acetaminophen and required poison control intervention in the form of N- acetylcysteine IV infusion. Patient was subsequently hospitalized for observation. Upon initial interaction, patient was fairly guarded and uncooperative. She continues to maintain the paranoid beliefs that she's been getting stocked and has been deprived of various appointment opportunities as result of her you to channel. PSYCHIATRIC REVIEW OF SYSTEMS: Substance: UDS negative Depression: Withdrawn, sad low moods, poor po intake Anna: Periodically irritable Psychosis: no AVH, + paranoia Anxiety/ OCD/ PTSD: Frequent anxiety and worries Suicidality: Recent overdose, but not to kill herself and instead notes she was trying to address her headache Other Self-Injurious Behavior: none currently, no SIB noted recently Violent/ Aggressive Behavior: none noted CURRENT MEDICATIONS: ( Psychiatric and Non-psychiatric ) none ALLERGIES: none PAST PSYCHIATRIC HISTORY: ( Prior Treatment, Precipitating Factors, Diagnosis, and Course of Treatment ) Inpatient: none Outpatient: none Prior Suicide Attempts: denies Prior Self-Injurious Behaviors: Unknown PAST PSYCHIATRIC MEDICATION TRIALS: none MEDICAL HISTORY: (Chronic and Acute Illnesses, Current Medical Treatment, Recent Hospitalizations) Denies Detoxification / Withdrawal: none noted MENTAL STATUS EXAM: General Appearance: Dressed in hospital gown, no acute distress Sensorium/Consciousness: Mostly alert but uncooperative Eye Contact: limited Attitude / Behavior: uncooperative and guarded Psychomotor & Musculoskeletal Activity: Psychomotor retardation Mood: Depressed Affect: constricted Speech / Language: spontaneous Thought Processes: Perseverative Thought Content: no SI/HI, paranoid delusions of persecution Perception: no AVH Orientation: person, place, time, situation Judgment What would you do if you smelled smoke in a crowded movie theater?: poor/impulsive Insight: poor Intelligence Vocabulary, general fund of knowledge, educational level: Average Capacity of ADLs: Independent ADMITTING DIAGNOSES Psychiatric: Delusion Disorder Evidence for the following: Medical: n/a INITIAL PLAN OF CARE AND TREATMENT GOALS: At the current time patient remains sufficiently paranoid and guarded such that her ability to take care of her daily needs is affected as evidenced by her self -report that she has reduced oral intake and goes days without eating. At the current time, it remains prudent to consider transferring this patient to inpatient psychiatric facility so she can get the appropriate mental health evaluation and care. Start patient on risperidone 1 mg at bedtime.
[2017-01-02] MEDS: LOVENOX SUB-Q SCH (22:39)
[2017-01-02] MEDS: AMBIEN PO PRN (22:41)
[2017-01-02] MEDS: RisperDAL PO SCH (22:41)
[2017-01-02] MEDS: LEVAQUIN PO SCH ×2 (22:44→22:45)
[2017-01-03] MEDS: PEPCID PO SCH (10:00)
--- NOTE | 2017-01-03 14:16 | Progress Note ---
Assessment and Plan Assessment and plan: Acetaminophen overdose. She apparently took Tylenol 30 pills. She was admitted for Tylenol overdose. She was initially started on Mucomyst, had an allergic reaction, this was discontinued she is now started on solumedrol and Benadryl. She is on suicide watch with 1:1 sitter, 1013 status Hypokalemia. Was 3.2 on admission. She was given replacement potassium. Repeat potassium ordered but patient has refused blood draw. Urinary tract infection. Started on Levaquin orally Homeless. marketing systems manager consulted. Medical non-compliance. patient has been very noncompliant. She removed IV and refused IV medications. She has also refused blood draw. I discussed with her about importance of checking labs - Acetaminophen level, INR ,CMP but she still refused. DVT prophylaxis with Lovenox She is medically stable to discharge to inpatient Psych History Interval history: Patient admitted for acetaminophen overdose, Patient has been refusing some medications, Patient still refuse blood draw for labs, She took iv out Hospitalist Physical - Physical exam Narrative exam: Gen Appearance: Not in acute distress, HEENT: normocephalic, atraumatic Neck: supple, no JVD Lungs: Clear to auscultation, no rales, no wheezing, Heart: S1 and S2 regular, no murmurs,no rubs or gallop, Abdomen: Soft , non tender, non distended, normal bowel sounds Extremity: No edema, no clubbing or cyanosis, Neuro : Awake,alert, oriented x 3, normal speech, moves all extremities - Constitutional Vitals: Temp Pulse Resp BP Pulse Ox 97.7 F 60 18 105/66 100 01/03/17 08:35 01/03/17 08:35 01/03/17 08:35 01/03/17 08:35 01/03/17 08:35 General appearance: Present: no acute distress, well-nourished Results - Labs CBC & Chem 7: 12/31/16 00:48 12/31/16 00:48 Labs: Laboratory Last Values WBC 8.0 K/mm3 (4.5-11.0) 12/31/16 00:48 RBC 3.83 M/mm3 (3.65-5.03) 12/31/16 00:48 Hgb 9.6 gm/dl (10.1-14.3) L 12/31/16 00:48 Hct 30.3 % (30.3-42.9) 12/31/16 00:48 MCV 79 fl (79-97) 12/31/16 00:48 MCH 25 pg (28-32) L 12/31/16 00:48 MCHC 32 % (30-34) 12/31/16 00:48 RDW 18.3 % (13.2-15.2) H 12/31/16 00:48 Plt Count 353 K/mm3 (140-440) 12/31/16 00:48 Lymph % (Auto) 22.1 % (13.4-35.0) 12/31/16 00:48 [place] % (Auto) 9.0 % (0.0-7.3) H 12/31/16 00:48 Eos % (Auto) 0.5 % (0.0-4.3) 12/31/16 00:48 Baso % (Auto) 0.8 % (0.0-1.8) 12/31/16 00:48 Lymph # 1.8 K/mm3 (1.2-5.4) 12/31/16 00:48 [place] # 0.7 K/mm3 (0.0-0.8) 12/31/16 00:48 Eos # 0.0 K/mm3 (0.0-0.4) 12/31/16 00:48 Baso # 0.1 K/mm3 (0.0-0.1) 12/31/16 00:48 Seg Neutrophils % 67.6 % (40.0-70.0) 12/31/16 00:48 Seg Neutrophils # 5.4 K/mm3 (1.8-7.7) 12/31/16 00:48 PT 16.0 Sec. (12.2-14.9) H 12/31/16 Unknown INR 1.22 (0.87-1.13) H 12/31/16 Unknown APTT 33.5 Sec. (24.2-36.6) 12/31/16 Unknown Sodium 140 mmol/L (137-145) 12/31/16 00:48 Potassium 3.2 mmol/L (3.6-5.0) L 12/31/16 00:48 Chloride 101.4 mmol/L (98-107) 12/31/16 00:48 Carbon Dioxide 24 mmol/L (22-30) 12/31/16 00:48 Anion Gap 18 mmol/L 12/31/16 00:48 BUN 10 mg/dL (7-17) 12/31/16 00:48 Creatinine 0.7 mg/dL (0.7-1.2) 12/31/16 00:48 Estimated GFR > 60 ml/min 12/31/16 00:48 BUN/Creatinine Ratio 14 % 12/31/16 00:48 Glucose 99 mg/dL (65-100) 12/31/16 00:48 Calcium 9.2 mg/dL (8.4-10.2) 12/31/16 00:48 Total Bilirubin 0.20 mg/dL (0.1-1.2) 12/31/16 10:06 Direct Bilirubin < 0.2 mg/dL (0-0.2) 12/31/16 10:06 AST 15 units/L (5-40) 12/31/16 10:06 ALT 7 units/L (7-56) 12/31/16 10:06 Alkaline Phosphatase 54 units/L (35-129) 12/31/16 10:06 Total Creatine Kinase 79 units/L (30-135) 12/31/16 00:48 Total Protein 8.5 g/dL (6.3-8.2) H 12/31/16 10:06 Albumin 4.6 g/dL (3.9-5) 12/31/16 10:06 Albumin/Globulin Ratio 1.2 % 12/31/16 10:06 HCG, Qual Negative (Negative) 12/31/16 00:48 Urine Color [place]imo (Yellow) 12/31/16 01:01 Urine Turbidity Slightly-cloudy (Clear) 12/31/16 01:01 Urine pH 5.0 (5.0-7.0) 12/31/16 01:01 Ur Specific [place] 1.035 (1.003-1.030) H 12/31/16 01:01 Urine Protein 100 mg/dl mg/dL (Negative) 12/31/16 01:01 Urine Glucose (UA) Neg mg/dL (Negative) 12/31/16 01:01 Urine Ketones Neg mg/dL (Negative) 12/31/16 01:01 Urine Blood Lg (Negative) 12/31/16 01:01 Urine Nitrite Neg (Negative) 12/31/16 01:01 Urine Bilirubin Sm (Negative) 12/31/16 01:01 Urine Ictotest Negative (Negative) 12/31/16 01:01 Urine Urobilinogen 2.0 mg/dL (<2.0) 12/31/16 01:01 Ur Leukocyte Esterase Sm (Negative) 12/31/16 01:01 Urine WBC (Auto) 44.0 /HPF (0.0-6.0) H 12/31/16 01:01 Urine RBC (Auto) > 182.0 /HPF (0.0-6.0) 12/31/16 01:01 U Epithel Cells (Auto) 5.0 /HPF (0-13.0) 12/31/16 01:01 Urine Bacteria (Auto) 1+ /HPF (Negative) 12/31/16 01:01 Urine Mucus 1+ /HPF 12/31/16 01:01 Salicylates < 0.3 mg/dL (2.8-20.0) L 12/31/16 11:04 Urine Opiates Screen Presumptive negative 12/31/16 01:01 Urine Methadone Screen Presumptive negative 12/31/16 01:01 Acetaminophen < 15.0 ug/mL (10.0-30.0) 12/31/16 20:10 Ur Barbiturates Screen Presumptive negative 12/31/16 01:01 Ur Phencyclidine Scrn Presumptive negative 12/31/16 01:01 Ur Amphetamines Screen Presumptive positive 12/31/16 01:01 U Benzodiazepines Scrn Presumptive negative 12/31/16 01:01 Urine Cocaine Screen Presumptive negative 12/31/16 01:01 U Marijuana (THC) Screen Presumptive negative 12/31/16 01:01 Drugs of Abuse Note Disclamer 12/31/16 01:01 Plasma/Serum Alcohol < 0.01 gm% (0-0.07) 12/31/16 00:48
[2017-01-03] MEDS: LEVAQUIN PO SCH (14:30)
--- NOTE | 2017-01-03 19:35 | Progress Note ---
Subjective - Reason for Consult Consult date: 01/03/17 Reason for consult: psychiatric follow up - Chief Complaint Chief complaint: "I think it is kind of weird how you all do not have any tools." This is a 36 year-old undomiciled female who reports no formal past psychiatric history now presenting secondary to a reported overdose on acetaminophen while waiting in the ER to be addressed for a headache. Patient reportedly took 28 500 mg acetaminophen and required poison control intervention in the form of N- acetylcysteine IV infusion. Patient was subsequently hospitalized for observation. Upon initial interaction, patient was fairly guarded and uncooperative. She continues to maintain the paranoid beliefs that she's being stalked by a gang. She reports "they" are everywhere. She wants to know how the psychiatrist knew about conversations she had in her house. She states she does not want to talk to anyone else. Mental Status Exam - Vital signs Last Vital Signs Temp 98.6 F 01/03/17 16:25 Pulse 62 01/03/17 16:25 Resp 18 01/03/17 16:25 BP 109/64 01/03/17 16:25 Pulse Ox 100 01/03/17 16:25 - Exam Orientation: time, place, person Affect: agitated Mood: congruent with affect Thought content: delusions, paranoia Thought Process: Tangential Perceptions: other (unable to obtain) Speech: rapid Concentration: focused Motor activity: normal Level of consciousness: alert Memory: Intact Interaction: uncooperative Assessment and Plan ADMITTING DIAGNOSES Psychiatric: Delusion Disorder Evidence for the following: Medical: acetaminophen level <15 INITIAL PLAN OF CARE AND TREATMENT GOALS: At the current time patient remains sufficiently paranoid and guarded such that her ability to take care of her daily needs is affected as evidenced by her self -report that she has reduced oral intake and goes days without eating. Condition unchanged. She is uncooperative. Transfer to inpatient psychiatric facility so she can get the appropriate mental health evaluation and care. Continue risperidone 1 mg at bedtime.
[2017-01-03] MEDS: RisperDAL PO SCH (22:06)
[2017-01-03] MEDS: LOVENOX SUB-Q SCH (22:07)
[2017-01-04] MEDS: PEPCID PO SCH (11:35)
--- NOTE | 2017-01-04 13:41 | Progress Note ---
Subjective - Reason for Consult Consult date: 01/04/17 Reason for consult: Psychiatry Follow-up - Chief Complaint Chief complaint: "I am being stalked" This is a 36 year-old undomiciled female who reports no formal past psychiatric history now presenting secondary to a reported overdose on acetaminophen while waiting in the ER to be addressed for a headache. Today patient is irritable and agitated during the assessment. She would not elaborate why she took multiple tylenol pills prior to her admission to [facility]. She stated that "people are stalking her" and I (the provider) should know who they are. Also, she stated that her electronics are being "bugged." After answering a few questions , she stated, "I am done." No gestures of SI/HI's or indications of side effects of her medications. Mental Status Exam - Vital signs Last Vital Signs Temp 97.6 F 01/04/17 09:00 Pulse 74 01/04/17 09:00 Resp 18 01/04/17 09:00 BP 111/65 01/04/17 09:00 Pulse Ox 99 01/04/17 09:00 - Exam Narrative exam: MSE: Appearance: irritable, uncooperative Behavior: regular eye contact Speech: regular rate and tone Mood: agitated, guarded Affect: congruent to mood Thought Process: circumstantial Thought Content: denies SI/HI's and AVH's, delusional, paranoid Motor Activity: ambulatory Cognition: A/O x3 Insight: poor Judgment: poor Assessment and Plan Impression: Delusion DO. Today patient is irritable and agitated during the assessment. Patient is uncooperative. Patient did not eat her lunch today. Recommendation/Plan: Continue 1013 with placement to inpatient psy services. Modify Risperdal to 2 mg PO HS for psychosis and start Cogentin 0.5 mg PO HS for EPS Prevention. Discussed possible metabolic side effects of Risperdal with patient.
[2017-01-04] MEDS: LEVAQUIN PO SCH (15:00)
--- NOTE | 2017-01-04 18:48 | Progress Note ---
Assessment and Plan Assessment and plan: Acetaminophen overdose. She apparently took Tylenol 30 pills. She was admitted for Tylenol overdose. She was initially started on Mucomyst, had an allergic reaction, this was discontinued she is now started on solumedrol and Benadryl. She is on suicide watch with 1:1 sitter, 1013 status Hypokalemia. Was 3.2 on admission. She was given replacement potassium. Repeat potassium ordered but patient has refused blood draw. Urinary tract infection. Started on Levaquin orally Homeless. funeral home general manager consulted. Medical non-compliance. patient has been very noncompliant. She removed IV and refused IV medications. She has also refused blood draw. I discussed with her about importance of checking labs - Acetaminophen level, INR ,CMP but she still refused. DVT prophylaxis with Lovenox She is medically stable to discharge to inpatient Psych, awaiting placement. History Interval history: Patient admitted for acetaminophen overdose, Patient has been refusing some medications, Patient still refuse blood draw for labs, She took iv out Hospitalist Physical - Physical exam Narrative exam: Gen Appearance: Not in acute distress, HEENT: normocephalic, atraumatic Neck: supple, no JVD Lungs: Clear to auscultation, no rales, no wheezing, Heart: S1 and S2 regular, no murmurs,no rubs or gallop, Abdomen: Soft , non tender, non distended, normal bowel sounds Extremity: No edema, no clubbing or cyanosis, Neuro : Awake,alert, oriented x 3, normal speech, moves all extremities - Constitutional Vitals: Temp Pulse Resp BP Pulse Ox 98.5 F 64 16 106/61 100 01/04/17 16:29 01/04/17 16:29 01/04/17 16:29 01/04/17 16:29 01/04/17 16:29 General appearance: Present: no acute distress, well-nourished Results - Labs CBC & Chem 7: 12/31/16 00:48 12/31/16 00:48 Labs: Laboratory Last Values WBC 8.0 K/mm3 (4.5-11.0) 12/31/16 00:48 RBC 3.83 M/mm3 (3.65-5.03) 12/31/16 00:48 Hgb 9.6 gm/dl (10.1-14.3) L 12/31/16 00:48 Hct 30.3 % (30.3-42.9) 12/31/16 00:48 MCV 79 fl (79-97) 12/31/16 00:48 MCH 25 pg (28-32) L 10 00:48 MCHC 32 % (30-34) 12/31/16 00:48 RDW 18.3 % (13.2-15.2) H 12/31/16 00:48 Plt Count 353 K/mm3 (140-440) 12/31/16 00:48 Lymph % (Auto) 22.1 % (13.4-35.0) 12/31/16 00:48 [place] % (Auto) 9.0 % (0.0-7.3) H 12/31/16 00:48 Eos % (Auto) 0.5 % (0.0-4.3) 12/31/16 00:48 Baso % (Auto) 0.8 % (0.0-1.8) 12/31/16 00:48 Lymph # 1.8 K/mm3 (1.2-5.4) 12/31/16 00:48 [place] # 0.7 K/mm3 (0.0-0.8) 12/31/16 00:48 Eos # 0.0 K/mm3 (0.0-0.4) 12/31/16 00:48 Baso # 0.1 K/mm3 (0.0-0.1) 12/31/16 00:48 Seg Neutrophils % 67.6 % (40.0-70.0) 12/31/16 00:48 Seg Neutrophils # 5.4 K/mm3 (1.8-7.7) 12/31/16 00:48 PT 16.0 Sec. (12.2-14.9) H 12/31/16 Unknown INR 1.22 (0.87-1.13) H 12/31/16 Unknown APTT 33.5 Sec. (24.2-36.6) 12/31/16 Unknown Sodium 140 mmol/L (137-145) 12/31/16 00:48 Potassium 3.2 mmol/L (3.6-5.0) L 12/31/16 00:48 Chloride 101.4 mmol/L (98-107) 12/31/16 00:48 Carbon Dioxide 24 mmol/L (22-30) 12/31/16 00:48 Anion Gap 18 mmol/L 12/31/16 00:48 BUN 10 mg/dL (7-17) 12/31/16 00:48 Creatinine 0.7 mg/dL (0.7-1.2) 12/31/16 00:48 Estimated GFR > 60 ml/min 12/31/16 00:48 BUN/Creatinine Ratio 14 % 12/31/16 00:48 Glucose 99 mg/dL (65-100) 12/31/16 00:48 Calcium 9.2 mg/dL (8.4-10.2) 12/31/16 00:48 Total Bilirubin 0.20 mg/dL (0.1-1.2) 12/31/16 10:06 Direct Bilirubin < 0.2 mg/dL (0-0.2) 12/31/16 10:06 AST 15 units/L (5-40) 12/31/16 10:06 ALT 7 units/L (7-56) 12/31/16 10:06 Alkaline Phosphatase 54 units/L (35-129) 12/31/16 10:06 Total Creatine Kinase 79 units/L (30-135) 12/31/16 00:48 Total Protein 8.5 g/dL (6.3-8.2) H 12/31/16 10:06 Albumin 4.6 g/dL (3.9-5) 12/31/16 10:06 Albumin/Globulin Ratio 1.2 % 12/31/16 10:06 HCG, Qual Negative (Negative) 12/31/16 00:48 Urine Color Nimo (Yellow) 12/31/16 01:01 Urine Turbidity Slightly-cloudy (Clear) 12/31/16 01:01 Urine pH 5.0 (5.0-7.0) 12/31/16 01:01 Ur Specific [place] 1.035 (1.003-1.030) H 12/31/16 01:01 Urine Protein 100 mg/dl mg/dL (Negative) 12/31/16 01:01 Urine Glucose (UA) Neg mg/dL (Negative) 12/31/16 01:01 Urine Ketones Neg mg/dL (Negative) 12/31/16 01:01 Urine Blood Lg (Negative) 12/31/16 01:01 Urine Nitrite Neg (Negative) 12/31/16 01:01 Urine Bilirubin Sm (Negative) 12/31/16 01:01 Urine Ictotest Negative (Negative) 12/31/16 01:01 Urine Urobilinogen 2.0 mg/dL (<2.0) 12/31/16 01:01 Ur Leukocyte Esterase Sm (Negative) 12/31/16 01:01 Urine WBC (Auto) 44.0 /HPF (0.0-6.0) H 12/31/16 01:01 Urine RBC (Auto) > 182.0 /HPF (0.0-6.0) 12/31/16 01:01 U Epithel Cells (Auto) 5.0 /HPF (0-13.0) 12/31/16 01:01 Urine Bacteria (Auto) 1+ /HPF (Negative) 12/31/16 01:01 Urine Mucus 1+ /HPF 12/31/16 01:01 Salicylates < 0.3 mg/dL (2.8-20.0) L 12/31/16 11:04 Urine Opiates Screen Presumptive negative 12/31/16 01:01 Urine Methadone Screen Presumptive negative 12/31/16 01:01 Acetaminophen < 15.0 ug/mL (10.0-30.0) 12/31/16 20:10 Ur Barbiturates Screen Presumptive negative 12/31/16 01:01 Ur Phencyclidine Scrn Presumptive negative 12/31/16 01:01 Ur Amphetamines Screen Presumptive positive 12/31/16 01:01 U Benzodiazepines Scrn Presumptive negative 12/31/16 01:01 Urine Cocaine Screen Presumptive negative 12/31/16 01:01 U Marijuana (THC) Screen Presumptive negative 12/31/16 01:01 Drugs of Abuse Note Disclamer 12/31/16 01:01 Plasma/Serum Alcohol < 0.01 gm% (0-0.07) 12/31/16 00:48
[2017-01-04] MEDS: LOVENOX SUB-Q SCH (22:15)
[2017-01-04] MEDS: COGENTIN PO SCH (22:47)
[2017-01-04] MEDS: RisperDAL PO SCH (22:48)
[2017-01-04] MEDS: AMBIEN PO PRN (22:49)
--- NOTE | 2017-01-05 09:12 | Progress Note ---
Assessment and Plan Assessment and plan: Acetaminophen overdose. She apparently took Tylenol 30 pills. She was admitted for Tylenol overdose. She was initially started on Mucomyst, had an allergic reaction, this was discontinued she is now started on solumedrol and Benadryl. She is on suicide watch with 1:1 sitter, 1013 status Hypokalemia. Was 3.2 on admission. She was given replacement potassium. Repeat potassium ordered but patient has refused blood draw. Urinary tract infection. Started on Levaquin orally Homeless. manager transfer consulted. Medical non-compliance. Patient has been very noncompliant. She removed IV and refused IV medications. She has also refused blood draw. I discussed with her about importance of checking labs - Acetaminophen level, INR ,CMP but she still refused. DVT prophylaxis with Lovenox She is medically stable to discharge to inpatient Psych. Awaiting placement. History Interval history: Patient admitted for acetaminophen overdose, Patient has been refusing some medications, Patient still refuse blood draw for labs, She took iv out Hospitalist Physical - Physical exam Narrative exam: Gen Appearance: Not in acute distress, HEENT: normocephalic, atraumatic Neck: supple, no JVD Lungs: Clear to auscultation, no rales, no wheezing, Heart: S1 and S2 regular, no murmurs,no rubs or gallop, Abdomen: Soft , non tender, non distended, normal bowel sounds Extremity: No edema, no clubbing or cyanosis, Neuro : Awake,alert, oriented x 3, normal speech, moves all extremities - Constitutional Vitals: Temp Pulse Resp BP Pulse Ox 98.6 F 64 18 106/58 100 01/05/17 07:38 01/05/17 07:38 01/05/17 07:38 01/05/17 07:38 01/05/17 00:00 General appearance: Present: no acute distress, well-nourished Results - Labs CBC & Chem 7: 12/31/16 00:48 12/31/16 00:48 Labs: Laboratory Last Values WBC 8.0 K/mm3 (4.5-11.0) 12/31/16 00:48 RBC 3.83 M/mm3 (3.65-5.03) 12/31/16 00:48 Hgb 9.6 gm/dl (10.1-14.3) L 12/31/16 00:48 Hct 30.3 % (30.3-42.9) 12/31/16 00:48 MCV 79 fl (79-97) 12/31/16 00:48 MCH 25 pg (28-32) L 10 00:48 MCHC 32 % (30-34) 12/31/16 00:48 RDW 18.3 % (13.2-15.2) H 12/31/16 00:48 Plt Count 353 K/mm3 (140-440) 12/31/16 00:48 Lymph % (Auto) 22.1 % (13.4-35.0) 12/31/16 00:48 [place] % (Auto) 9.0 % (0.0-7.3) H 12/31/16 00:48 Eos % (Auto) 0.5 % (0.0-4.3) 12/31/16 00:48 Baso % (Auto) 0.8 % (0.0-1.8) 12/31/16 00:48 Lymph # 1.8 K/mm3 (1.2-5.4) 12/31/16 00:48 Crisp # 0.7 K/mm3 (0.0-0.8) 12/31/16 00:48 Eos # 0.0 K/mm3 (0.0-0.4) 12/31/16 00:48 Baso # 0.1 K/mm3 (0.0-0.1) 12/31/16 00:48 Seg Neutrophils % 67.6 % (40.0-70.0) 12/31/16 00:48 Seg Neutrophils # 5.4 K/mm3 (1.8-7.7) 12/31/16 00:48 PT 16.0 Sec. (12.2-14.9) H 12/31/16 Unknown INR 1.22 (0.87-1.13) H 12/31/16 Unknown APTT 33.5 Sec. (24.2-36.6) 12/31/16 Unknown Sodium 140 mmol/L (137-145) 12/31/16 00:48 Potassium 3.2 mmol/L (3.6-5.0) L 12/31/16 00:48 Chloride 101.4 mmol/L (98-107) 12/31/16 00:48 Carbon Dioxide 24 mmol/L (22-30) 12/31/16 00:48 Anion Gap 18 mmol/L 12/31/16 00:48 BUN 10 mg/dL (7-17) 12/31/16 00:48 Creatinine 0.7 mg/dL (0.7-1.2) 12/31/16 00:48 Estimated GFR > 60 ml/min 12/31/16 00:48 BUN/Creatinine Ratio 14 % 12/31/16 00:48 Glucose 99 mg/dL (65-100) 12/31/16 00:48 Calcium 9.2 mg/dL (8.4-10.2) 12/31/16 00:48 Total Bilirubin 0.20 mg/dL (0.1-1.2) 12/31/16 10:06 Direct Bilirubin < 0.2 mg/dL (0-0.2) 12/31/16 10:06 AST 15 units/L (5-40) 12/31/16 10:06 ALT 7 units/L (7-56) 12/31/16 10:06 Alkaline Phosphatase 54 units/L (35-129) 12/31/16 10:06 Total Creatine Kinase 79 units/L (30-135) 12/31/16 00:48 Total Protein 8.5 g/dL (6.3-8.2) H 12/31/16 10:06 Albumin 4.6 g/dL (3.9-5) 12/31/16 10:06 Albumin/Globulin Ratio 1.2 % 12/31/16 10:06 RBC Folic Acid 555 ng/mL (>280) 01/01/17 13:30 HCG, Qual Negative (Negative) 12/31/16 00:48 Urine Color Nimo (Yellow) 12/31/16 01:01 Urine Turbidity Slightly-cloudy (Clear) 12/31/16 01:01 Urine pH 5.0 (5.0-7.0) 12/31/16 01:01 Ur Specific [place] 1.035 (1.003-1.030) H 12/31/16 01:01 Urine Protein 100 mg/dl mg/dL (Negative) 12/31/16 01:01 Urine Glucose (UA) Neg mg/dL (Negative) 12/31/16 01:01 Urine Ketones Neg mg/dL (Negative) 12/31/16 01:01 Urine Blood Lg (Negative) 12/31/16 01:01 Urine Nitrite Neg (Negative) 12/31/16 01:01 Urine Bilirubin Sm (Negative) 12/31/16 01:01 Urine Ictotest Negative (Negative) 12/31/16 01:01 Urine Urobilinogen 2.0 mg/dL (<2.0) 12/31/16 01:01 Ur Leukocyte Esterase Sm (Negative) 12/31/16 01:01 Urine WBC (Auto) 44.0 /HPF (0.0-6.0) H 12/31/16 01:01 Urine RBC (Auto) > 182.0 /HPF (0.0-6.0) 12/31/16 01:01 U Epithel Cells (Auto) 5.0 /HPF (0-13.0) 12/31/16 01:01 Urine Bacteria (Auto) 1+ /HPF (Negative) 12/31/16 01:01 Urine Mucus 1+ /HPF 12/31/16 01:01 Salicylates < 0.3 mg/dL (2.8-20.0) L 12/31/16 11:04 Urine Opiates Screen Presumptive negative 12/31/16 01:01 Urine Methadone Screen Presumptive negative 12/31/16 01:01 Acetaminophen < 15.0 ug/mL (10.0-30.0) 12/31/16 20:10 Ur Barbiturates Screen Presumptive negative 12/31/16 01:01 Ur Phencyclidine Scrn Presumptive negative 12/31/16 01:01 Ur Amphetamines Screen Presumptive positive 12/31/16 01:01 U Benzodiazepines Scrn Presumptive negative 12/31/16 01:01 Urine Cocaine Screen Presumptive negative 12/31/16 01:01 U Marijuana (THC) Screen Presumptive negative 12/31/16 01:01 Drugs of Abuse Note Disclamer 12/31/16 01:01 Plasma/Serum Alcohol < 0.01 gm% (0-0.07) 12/31/16 00:48
[2017-01-05] MEDS: MILK OF MAGNESIA PO PRN (11:08)
[2017-01-05] MEDS: ULTRAM PO PRN (11:14)
[2017-01-05] MEDS: PEPCID PO SCH (11:15)
--- NOTE | 2017-01-05 14:15 | Progress Note ---
Subjective - Reason for Consult Consult date: 01/05/17 Reason for consult: Psychiatry Follow-up - Chief Complaint Chief complaint: "Nothing is wrong with me" This is a 36 year-old undomiciled female who reports no formal past psychiatric history now presenting secondary to a reported overdose on acetaminophen while waiting in the ER to be addressed for a headache. Today patient is calm and cooperative during the assessment. She stated that she "only" took multiple Tylenol pills because she was in "pain." Also, she still feel that she is being stalked by multiple people and being "bugged." She cannot elaborate about these people. Patient did eat 100% of her breakfast. She stated she was served food she like. She denies SI/HI's and AVH's. She refused her Risperdal last night. Mental Status Exam - Vital signs Last Vital Signs Temp 98.6 F 01/05/17 07:38 Pulse 64 01/05/17 07:38 Resp 18 01/05/17 07:38 BP 106/58 01/05/17 07:38 Pulse Ox 100 01/05/17 00:00 - Exam Narrative exam: MSE: Appearance: calm Behavior: regular eye contact Speech: regular rate and tone Mood: guarded Affect: congruent to mood Thought Process: circumstantial Thought Content: denies SI/HI's and AVH's, delusiona, paranoid Motor Activity: ambulatory Cognition: A/O x3 Insight: variable Judgment: variable Assessment and Plan Impression: Delusion DO. Today patient is calm during the assessment. Patient ate 100% of her meal. Recommendation/Plan: Continue 1013 with placement to inpatient psy services. Continue Risperdal 2 mg PO HS for psychosis and Cogentin 0.5 mg PO HS for EPS Prevention. Discussed possible metabolic side effects of Risperdal with patient.
[2017-01-05] MEDS: MOTRIN PO PRN (18:40)
[2017-01-05] MEDS: LEVAQUIN PO SCH (18:41)
[2017-01-05] MEDS: COGENTIN PO SCH (21:57)
[2017-01-05] MEDS: LOVENOX SUB-Q SCH (21:59)
[2017-01-05] MEDS: AMBIEN PO PRN (22:00)
[2017-01-05] MEDS: RisperDAL PO SCH (22:01)
[2017-01-06] MEDS: PEPCID PO SCH (10:50)
[2017-01-06] MEDS: LEVAQUIN PO SCH (14:40)
[2017-01-06 16:46] VITALS: BP 96/56
--- NOTE | 2017-01-06 18:07 | Discharge Summary ---
Providers - Providers Date of Admission: 12/31/16 12:23 Attending physician: KATERINA CANELA MD 12/31/16 17:22 Consult Risk Management [Consult Patient Care Timber Cutter] [CONS] Urgent Reason For Exam: pt on 1013, refusing ordered medical treatments 01/01/17 06:53 Consult to Mental Health [CONS] Routine Reason For Exam: Suicidal/Drug OD Place consult to:: dr. norton Notified:: Phone number called:: [phone] Was contact made?: Yes If yes, spoke with:: angelo Time called:: 08:49 01/01/17 06:54 Consult to Case Management [CONS] Routine Services Needed at Discharge: Home Health Services Other Notified:: cw Comment:: Homeless Primary care physician: SENIOR PROJECT LEADER/TEAM LEAD Hospitalization Condition: Fair Hospital course: 36F with pmh of major depression who was admitted after taking 30 pills of tylenol, she was confused and altered, she received IVF and mucomyst, she clinically improved and was put on suicide watch. Her electrolytes were repleted and she received abx for UTI. She was seen by [facility] and was transferred to an inpatient psych facility Diagnosis Acute Toxic hepatitis, due to tylenol overdose Hypokalemia UTI Major depression suicide attempt Disposition: DC/TX-65 PSY HOSP/PSY UNIT Time spent for discharge: 33 minutes Core Measure Documentation - Palliative Care Palliative Care/ Comfort Measures: Not Applicable - Core Measures Any of the following diagnoses?: none Exam - Constitutional Vitals: Temp Pulse Resp BP Pulse Ox 98.4 F 78 16 96/56 100 01/06/17 16:42 01/06/17 16:42 01/06/17 16:42 01/06/17 16:42 01/06/17 16:42 General appearance: Present: no acute distress, well-nourished - EENT Eyes: Present: PERRL ENT: hearing intact, clear oral mucosa - Neck Neck: Present: supple, normal ROM - Respiratory Respiratory effort: normal Respiratory: bilateral: CTA - Cardiovascular Heart Sounds: Present: S1 & S2. Absent: rub, click - Extremities Extremities: pulses symmetrical, No edema Peripheral Pulses: within normal limits - Abdominal General gastrointestinal: Present: soft, non-tender, non-distended, normal bowel sounds Female genitourinary: Present: normal - Integumentary Integumentary: Present: clear, warm, dry - Musculoskeletal Musculoskeletal: gait normal, strength equal bilaterally - Psychiatric Psychiatric: no appropriate mood/affect, no intact judgment & insight - Neurologic Neurologic: CNII-XII intact, moves all extremities Plan Follow up with: PRIMARY CARE, [Primary Care Provider] - 3-5 Days
[2017-01-06] MEDS: RisperDAL PO SCH (22:01)
[2017-01-06] MEDS: COGENTIN PO SCH (22:03)
[2017-01-06] MEDS: LOVENOX SUB-Q SCH (22:03)
[2017-01-06] MEDS: MILK OF MAGNESIA PO PRN (22:14)
--- NOTE | 2017-01-06 23:07 | Progress Note ---
Subjective - Reason for Consult Reason for consult: recent paranoia Mental Status Exam - Vital signs Last Vital Signs Temp 98.4 F 01/06/17 16:42 Pulse 78 01/06/17 16:42 Resp 16 01/06/17 16:42 BP 96/56 01/06/17 16:42 Pulse Ox 100 01/06/17 16:42 Assessment and Plan I. This screening and assessment is based on information collected from the following sources: II. SUICIDE RISK SCREENING (within last 30 days): A.) Suicidal thoughts/behaviors: recent paranoid/disorganized behaviors SUICIDE RISK ASSESSMENT III. FACTORS THAT INCREASE RISK: A.) Demographic and Substance Use Factors: B.) Current/Recent Factors (within past 3 months): Psychosocial/Environmental Factors: unemployed Physical Illness: None Cognitive/Psychological Factors: chronic mental illness C.) Historical Factors: none D.) Diagnostic/Symptom/Treatment Factors: None E.) Acute Risk Factor Severity (DESC; MILD/MOD/SEVERE) mild Other factors for this individual that increase risk: IV. FACTORS THAT DECREASE RISK: Resilience/Protective Factors: Intermittent psychosocial supports Other factors for this individual that decrease risk: Patient reports he is future oriented and currently denying a desire to harm self. V. Clinician's Formulation of Risk and Determination of level of Care: Patient is having both chronic and acute stressors which have brought them to the ER. Just prior to the ER presentation patient reports feeling overwhelmed and stressed. Since being hospitalized, the patient has consistently denied the desire to harm self. Patient has been on the medical floor over 48 hours and has not shown any gestures and consistently denied desire to harm themselves. Additionally, patient has reduced paranoia and is more aware of how to resolve the specific interpersonal conflict they are having. Consequently, it is the opinion of the treatment team that the patient is at low risk at the current time given the above interventions that were implemented in his care. Estimation of Imminent Risk: Low due to the above explanation Determination of Level of Care based on Suicide Risk: Outpatient follow-up. Furthermore, patient has had consistently denied the desire to harm self. Additionally, those thoughts were impulsive and an attempt to address her headach not to harm herself. When asked by ER physician if she had taken medicaitons, she noted she took 30 acetaminophen which led her to be fairly drowsy and required poison control being called. Currently, the patient had no intent or clear plan to execute on those thoughts. Narrative description of clinical reasoning. (This must be completed on all patients): . Plan and Interventions based on Suicide Risk: This patient will likely be stepped down to an outpatient mental health center in the community upon discharge and follow-up within 7 days of his discharge from the hospital. VII. Discharge/After Hours Support Plan: Patient can return back to the ER, call 911 or crisis line if symptoms of depression, anxiety, suicidality return. MENTAL STATUS EXAM: General Appearance: Dressed in hospital gown, no acute distress Sensorium/Consciousness: Mostly alert but uncooperative Eye Contact: limited Attitude / Behavior: more cooperative Psychomotor & Musculoskeletal Activity: wnl Mood: Depressed Affect: constricted Speech / Language: spontaneous Thought Processes: more organized Thought Content: no SI/HI, reduced delusions of paranoia Perception: no AVH Orientation: person, place, time, situation Judgment What would you do if you smelled smoke in a crowded movie theater?: poor/impulsive Insight: poor Intelligence Vocabulary, general fund of knowledge, educational level: Average Capacity of ADLs: Independent ADMITTING DIAGNOSES Psychiatric: Delusion Disorder Evidence for the following: Medical: n/a INITIAL PLAN OF CARE AND TREATMENT GOALS: Currently the patient's paranoia has reduced marginally and it appears that she may be more able to care for her daily needs such as engaging in regular PO intake. Nevertheless, she should be observed another 24-48 hours to ensure she has both engaged in PO solid and liquid intake and adhered to her antipsychotic medications prior to discharging. She notes that her aunt will pick her up from the hospital and help her engage in outpatient care. The following needs to be completed prior to discharge: Crisis/Safety Plan Contact Aunt and verify that she will help the patient with housing and finding appropriate outpatient mental healthcare Consistent adherence to risperidone has been document for 2 days with associated reduction in paranoia Outpatient follow up coordianted and communicated with Aunt and the patient
== END 2017-01-07 00:55 | DRG 918 ==
LOC: ED 23:47 → 4A 12-31 12:23 → 3A 12-31 17:01
PROVIDERS: ADMIT Internal Medicine; ATTEND Internal Medicine
DX: T39.1X1A Poisoning by 4-Aminophenol derivatives, accidental (unintentional), initial encounter (principal); N39.0 Urinary tract infection, site not specified; F22 Delusional disorders; Z59.0 Homelessness; H93.13 Tinnitus, bilateral; E87.6 Hypokalemia; Y92.89 Other specified places as the place of occurrence of the external cause; D64.9 Anemia, unspecified; Z91.19 Patient's noncompliance with other medical treatment and regimen; F32.9 Major depressive disorder, single episode, unspecified; K71.2 Toxic liver disease with acute hepatitis
CPT/HCPCS: 36415; 70450; 80048; 80074; 80307; 80320; 81001; 82550; 82747; 84703; 85025; 85610; 85730; 96365; 99285; G0480; J0132; J0696; J1200; J1650; J2930; J7042; J7060; J7070; Q0162